=== PATIENT | male | born 1990 ===

== ENCOUNTER 2019-02-02 00:26 | Emergency (ER) | payer SELFPAY ==
[2019-02-02 00:46] VITALS: BP 143/94; PULSE 88; TEMP 98; BMI 29.2
--- NOTE | 2019-02-02 01:02 | PDOC ---
History of Present Illness - General Chief Complaint: Alcohol intoxication Stated Complaint: ETOH Time Seen by Provider: 02/02/19 00:47 History Source: Patient Exam Limitations: No Limitations - History of Present Illness Initial Comments: 02/02/19 00:59 This is a 28-year-old male brought in by EMS for evaluation of intoxication. Patient said he drank 2 beers only and denied taking anything else. Patient otherwise has no complaints. Allergies: as per nursing notes Past Medical History: none Social history: Lives with family. No smoking. No alcohol. No illicit drugs. Surgical history: None General: No fevers or chills, no weakness, no weight loss HEENT: No change in vision. No sore throat,. No ear pain CardioVascular: no chest discomfort. No shortness of breath Respiratory:No cough, or wheezing. Gastrointestinal: no nausea, vomiting, diarrhea or constipation, No rectal bleeding Genitourinary: No dysuria, hematuria, or frequency Musculoskeletal: No joint or muscle pain or swelling Neurologic: No headache, vertigo, dizziness or loss of consciousness Psychiatric: nor depression Skin: No rashes or easy bruising Endocrine: no increased thirst or abnormal weight change Allergic: no skin or latex allergy All other systems reviewed and normal Exam: General: Well-nourished well-developed individual, no acute distress, +AOB HEENT: Throat: Normal, tonsils normal, no erythema or exudate Neck: Supple, no meningeal signs, no lymphadenopathy Eyes::Pupils equal reactive and round, extraocular motion intact Chest: Nontender to palpation Cardiac: S1-S2 normal, regular rate and rhythm, no murmurs rubs or gallops Respiratory: Lungs clear to auscultation bilateral Abdomen: Soft, nondistended, normal bowel sounds, there is no tenderness on palpation diffusely Extremities: Warm, dry, no cyanosis, clubbing, or edema Skin: No rashes Neuro: Alert and oriented x3, CN II - XII intact, nonfocal exam with normal strength, normal sensation, normal reflexes, normal gait, Psych: Normal mood and affect. 02/02/19 01:15 Assessment and plan: This is a 28-year-old male who was brought in by EMS for evaluation of intoxication. Patient is primarily Turkish-speaking. Patient is alert awake and ambulatory in the ED but intoxicated. We will try to find someone to pick him up and take him home otherwise I will observe him until the morning and discharge him then. 02/02/19 02:48 Patient's cousin came and took him home. Patient's cousin will stay with him tonight to make sure he is okay Past History - Past Medical History COPD: No CHF: No - Suicide/Smoking/Psychosocial Hx Smoking History: Never smoked Hx Alcohol Use: Yes Drug/Substance Use Hx: No *Physical Exam - Vital Signs Last Vital Signs Temp Pulse Resp BP Pulse Ox 98 F 88 16 143/94 98 02/02/19 00:27 02/02/19 00:27 02/02/19 00:27 02/02/19 00:27 02/02/19 00:27 *DC/Admit/Observation/Transfer Diagnosis at time of Disposition: Alcohol intoxication Qualifiers: Complication of substance-induced condition: uncomplicated Qualified Code(s): F10.920 - Alcohol use, unspecified with intoxication, uncomplicated - Discharge Dispostion Disposition: HOME Condition at time of disposition: Stable Decision to Admit order: No - Referrals - Patient Instructions Additional Instructions: Go Home and do not drink anymore alcohol tonight, drink in moderation. Return to the emergency department immediately with ANY new, persistent or worsening symptoms. Continue any medications as previously prescribed by your physician. You should follow up with your primary doctor as soon as possible regarding today's emergency department visit. . Please make sure your doctor reviews the results of your emergency evaluation. Thank you for coming to the Emergency Department today for your care. It was a pleasure to see you today. Please note that your evaluation is INCOMPLETE until you follow-up with your doctor. - Post Discharge Activity
== END 2019-02-02 01:40 | disposition home or self-care (01) ==
LOC: FER 00:26
DX: F10.920 Alcohol use, unspecified with intoxication, uncomplicated (principal)
CPT/HCPCS: 99281-25